=== PATIENT | male | born 1985 | race Caucasian/White ===

== ENCOUNTER 2021-01-19 09:46 | Emergency (ER) | payer OTHER, SELFPAY ==
[2021-01-19 09:57] VITALS: BP 114/78; PULSE 54; RESP 18; TEMP 36.7; O2SAT 98; BMI 19.5
--- NOTE | 2021-01-19 10:27 | ED.NECK ---
HPI - Neck Pain/Injury General Chief Complaint: Neck Pain/Injury Stated Complaint: NECK PAIN Time Seen by Provider: 01/19/21 10:15 Source: patient and family Mode of arrival: ambulatory Limitations: no limitations History of Present Illness HPI Narrative: 35 y/o male presenting with acute on chronic right sided neck pain that started yesterday. He denies trauma or injury but states he woke up and his neck was very tight and in spasm. He has a history of similar episodes that usually improve with massage and topical Biofreeze. These interventions did not improve his pain and he woke up today with even worsening pain. Pain is worse with movement and palpation. No headache, fevers, chills, vision changes. No recent chiropractic manipulation. Recently [place] so he does not have a PCP. MD complaint: neck pain Onset (ago): day(s) (1) Place: home Radiation: right lateral and upper back Severity: severe and similar to prior neck pain Severity scale (1-10): 8 Quality: aching and spasming Duration: constant Relieving factors: immobilization and remaining still Exacerbating factors: movement of neck Context: unknown Associated symptoms: none Treatments prior to arrival: none Related Data Previous Rx's Medication Instructions Recorded cyclobenzaprine 10 mg PO TID PRN #10 tab 01/19/21 ibuprofen 600 mg PO Q8H PRN #20 tab 01/19/21 lidocaine [Lidoderm] 1 patch TOPICAL DAILY #15 ea 01/19/21 Allergies Allergy/AdvReac Type Severity Reaction Status Date / Time No Known Allergies Allergy Verified 01/19/21 09:59 Review of Systems Review of Systems: Constitutional: No Fever, No Chills ENT/Mouth: No sore throat, No Rhinorrhea, No Swallowing Difficulty Cardiovascular: No Chest Pain, No SOB Respiratory: No Cough, No Sputum Gastrointestinal: No Nausea, No Vomiting Musculoskeletal: No joint pain, + Myalgias Skin: No Skin Lesions, No rash Neuro: No Weakness, No Numbness, No Dizziness, No Headache Psych: No Anxiety/Panic, No Depression Heme/Lymph: No Bruising, No Lymphadenopathy PMFSH Past Medical History Attestation statement: The following information was validated with the patient. Medical History No known health problems Social History Social History Advance Directives: No Advance Directives Information Provided: No Physical Exam Vital Signs: Vital Signs: Last Vital Signs Temp 98.0 F 01/19/21 09:57 Pulse 54 01/19/21 09:57 Resp 18 01/19/21 09:57 BP 114/78 01/19/21 09:57 Pulse Ox 98 01/19/21 09:57 Body Mass Index 19.5 Appearance: Alert. Oriented X3. No acute distress. HEENT: normal inspection Neck: right lateral tenderness with palpable muscle spasm of SCM and upper trapezius, pain with lateral rotation. no cervical spinal tenderness. CVS: Normal heart rate and rhythm. Pulses normal. Respiratory: No respiratory distress. Skin: Skin warm and dry. Normal skin color. Normal skin turgor. No rashes. Extremities: atraumatic, no edema Neuro: Oriented X 3. No motor deficit. No sensory deficit. Equal and symmetrical strength throughout. Course Course Course Narrative: 35 y/o male presenting with acute on chronic right sided neck pain. Has several episodes in the past. Exam and clinical presentation consistent with torticollis vs muscle strain. Will treat with NSAID and muscle relaxer. Management discusseed. He agrees to plan and is stable for discharge. Discharge Plan Discharge Clinical Impression: Torticollis Patient Disposition: Home, Self-Care Instructions: Spasmodic Torticollis (ED) Additional Instructions: Rest. No strenuous activity. Use ice and/or heat to your neck several times per day. Do gentle stretching to your neck as tolerated. Take the prescribed medications as needed for pain and muscle spasm. If you have worsening symptoms come back to the ER for further evaluation. Prescriptions: New cyclobenzaprine 10 mg tablet 10 mg PO TID PRN (Reason: muscle spasm) Qty: 10 RF: 0 lidocaine [Lidoderm] 5 % adhesive patch,medicated 1 patch topical DAILY Qty: 15 RF: 0 ibuprofen 600 mg tablet 600 mg PO Q8H PRN (Reason: pain) Qty: 20 RF: 0 Stand Alone Forms: Work/School Release Print Language: Armenian
[2021-01-19] MEDS: Ibuprofen 600 MG TABLET PO (10:30)
[2021-01-19] MEDS: Lidocaine 4 % Patch ADH..PATCH 1 PATCH TRANSDERMA (10:30)
[2021-01-19] MEDS: diazePAM 5 MG TABLET PO (10:31)
[2021-01-19 10:42] VITALS: RESP 18
== END 2021-01-19 10:46 | disposition home or self-care (01) ==
PROVIDERS: Emergency Provider Emergency Medicine
DX: G24.3 Spasmodic torticollis (principal)
CPT/HCPCS: 99283

== ENCOUNTER 2021-03-16 10:02 | Emergency (ER) | payer OTHER, SELFPAY ==
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
[2021-03-16 11:19] VITALS: BP 120/75; PULSE 58; RESP 18; TEMP 36.7; O2SAT 98; BMI 20.3
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
[2021-03-16] MEDS: Ibuprofen 800 MG TABLET PO (12:15)
[2021-03-16] MEDS: Cyclobenzaprine HCl 5 MG TABLET PO (12:15)
== END 2021-03-16 14:33 | disposition home or self-care (01) ==
PROVIDERS: Emergency Provider Emergency Medicine Emergency Medical Services
DX: S16.1XXA Strain of muscle, fascia and tendon at neck level, initial encounter (principal); W50.0XXA Accidental hit or strike by another person, initial encounter; Y93.83 Activity, rough housing and horseplay; Y92.039 Unspecified place in apartment as the place of occurrence of the external cause; Y99.9 Unspecified external cause status
CPT/HCPCS: 72125; 73010; 99283; 99284

== ENCOUNTER 2023-07-07 07:52 | Emergency (ER) | payer OTHER, SELFPAY ==
[2023-07-07 08:03] VITALS: BP 102/71; PULSE 71; RESP 16; TEMP 37.2; O2SAT 99; BMI 20.5
[2023-07-07 08:34] LABS: MANUAL DIFF FLAG NO
[2023-07-07 08:39] LABS: Basophils Percent Auto 0.2 % (0-2); Eosinophils Percent Auto 0.7 % (0-4); Hematocrit 40.4 % (42.0-52.0); Hemoglobin 13.5 g/dl (14.0-18.0); Imm Gran Abs Auto 0.01 X10*3/uL (0.00-0.03); Imm Gran Pct Auto 0.2 % (0.0-0.4); Lymphocytes Absolute Auto 0.4 X10*3/uL (1.2-4.9); Lymphocytes Percent Auto 9.5 % (20-40); Mean Corpuscular HGB Conc 33.4 g/dl (31.0-36.0); Mean Corpuscular Hemoglobin 29.5 pg (27.0-33.0); Mean Corpuscular Volume 88.2 fL (80.0-98.0); Mean Platelet Volume 9.8 fL (9.4-12.4); Monocytes Absolute Auto 0.6 X10*3/uL (0.1-1.2); Monocytes Percent Auto 12.7 % (2-11); Neutrophils Absolute Auto 3.5 x10*3/uL (2.0-8.3); Neutrophils Percent Auto 76.7 % (45-73); Platelet Count 209 X10*3/uL (160-400); Red Blood Count 4.58 X10*6/uL (4.60-5.80); White Blood Count 4.6 X10*3/uL (4.8-10.8)
[2023-07-07] MEDS: Ondansetron ODT 4 MG TAB.RAPDIS TRANSLINGU (08:41)
[2023-07-07 08:48] LABS: Anion Gap 14 (12-20); Blood Urea Nitrogen 9 mg/dL (9-16); Calcium 9.1 mg/dL (8.4-10.2); Carbon Dioxide 21 mmol/L (22-29); Chloride 106 mmol/L (96-108); Creatinine Clr Calc Pharmacy 92.5; Estimated Glomerular Filt Rate > 60; Glucose Random 108 mg/dL (60-115); Potassium 3.4 mmol/L (3.3-5.1); Sodium 138 mmol/L (135-145)
--- NOTE | 2023-07-07 08:49 | ED.GENADULT ---
HPI - General Adult General Chief complaint: General Medical Stated complaint: body aches Time Seen by Provider: 07/07/23 08:37 Source: patient Mode of arrival: ambulatory Limitations: no limitations History of Present Illness HPI narrative: 37-year-old male otherwise healthy came in for evaluation of generalized body ache, runny nose, sneezing, coughing, decreased taste sensation. Patient was exposed to his who is sick with similar symptoms and positive for COVID infection. Related Data Previous Rx's Medication Instructions Recorded cyclobenzaprine 10 mg tablet 10 mg PO TID PRN muscle spasm #10 01/19/21 tabs ibuprofen 600 mg tablet 600 mg PO Q8H PRN pain #20 tabs 01/19/21 lidocaine 5 % topical patch 1 patch topical DAILY #15 ea 01/19/21 (Lidoderm) cyclobenzaprine 10 mg tablet 10 mg PO TID PRN pain #18 tabs 03/16/21 naproxen 500 mg tablet 500 mg PO BID PRN pain #20 tabs 03/16/21 ondansetron 4 mg disintegrating 4 mg PO Q8-12H PRN nausea and 07/07/23 tablet vomiting #10 tabs Allergies Allergy/AdvReac Type Severity Reaction Status Date / Time No Known Allergies Allergy Verified 03/16/21 11:19 Review of Systems Review of Systems: All other systems are reviewed and are negative Constitutional: Reports as per HPI and Reports no additional constitutional complaints Eyes: Reports as per HPI and Reports no additional eye complaints Reports system reviewed and no additional complaints, except as documented Cardiovascular: Reports as per HPI and Reports no additional cardiovascular complaints Respiratory: Reports as per HPI and Reports no additional respiratory complaints Gastrointestinal: Reports as per HPI and Reports no additional gastrointestinal complaints Genitourinary: Reports no additional female genitourinary complaints Musculoskeletal: Reports no additional musculoskeletal complaints Skin/Breast: Reports system reviewed and no additional complaints, except as docu Psychiatric: Reports no additional psychiatric complaints Endocrine: Reports no additional endocrine complaints Hematologic/Lymphatic: Reports no additional hematologic/lymphatic complaints Allergic/Immunologic: Reports no additional allergic/immunologic complaints Reports system reviewed and no additional complaints, except as documented and Reports Abnormal speech present [facility] Past Medical History Medical History No known health problems Social History Social History Smoked in Last 30 Days: No Use of substances other than those prescribed or required for medical reasons: Yes Substance Use Type: Marijuana Last Used Substance: Days (ago) Advance Directives: No Advance Directives Information Provided: Yes Physical Exam ED Vital Signs: Vital Signs - 24 hr 07/07/23 08:03 Temperature 98.9 F Pulse Rate 71 Respiratory Rate 16 Blood Pressure 102/71 Pulse Oximetry 99 Oxygen Delivery Method Room Air BMI result Body Mass Index 20.5 Vital signs have been reviewed and appear to be correct. Blood pressure elevated. Heart rate normal. Respiratory rate normal. Temperature normal. Oxygen saturation normal. Appearance: Alert. Oriented X3. No acute distress. Head: Normal external exam. Normocephalic. Atraumatic. No Oleary signs noted. No raccoon eyes noted Eyes: PERRLA. EOMI. Conjunctiva and sclera normal. Eyelids normal. ENT: TM's Normal. Pharynx normal. Uvula midline. Moist mucous membranes. No trismus noted. No drooling noted. No muffled voice noted. Neck: Normal inspection. Neck supple. FROM. No adenopathy. Thyroid Normal. No meningeal signs. No neck mass noted. CVS: Normal heart rate and rhythm. Heart sound normal. No murmurs noted. Pulses normal throughout. Respiratory: No respiratory distress. Painless inspiration. Breath sounds normal. No wheezes/rales/rhonchi noted. Chest nontender. No accessory muscle usage noted or decreased air movement noted. Abdomen: Soft and nontender. Bowel sounds normal in all 4 quadrants. No distention noted. No organomegaly noted. No visible injury noted. Back: No CVA tenderness. Full range of motion noted. Skin: Skin warm and dry. Normal skin color. Normal skin turgor. No rashes/lesions/lacerations noted. Extremities: No lower extremity edema. Extremities exhibit normal range of motion. Extremities nontender. Neuro: Oriented X 3. Cranial nerve exam: II-XII are grossly intact No motor deficit. No sensory deficit. Reflexes normal. Medications Administered Discontinued Medications Generic Name Dose Route Start Last Admin Trade Name Freq PRN Reason Stop Dose Admin Ondansetron HCl 4 mg 07/07/23 08:37 07/07/23 08:41 Ondansetron Odt 4 Mg Tab.Rapdis TRANSLINGU 07/07/23 08:38 4 mg ONCE ONE Administration Medical Decision Making Differential Diagnosis Differential Diagnoses: The differential diagnosis associated with the presentation includes ( for COVID-19 infection, influenza a, influenza B, severe anemia, severe dehydration, electrolyte abnormality.) Admission/Observation Consideration of admission/observation: Escalation of care including admission/observation considered Lab Data MDM Lab Attestation statement: I reviewed the patient's lab results. 07/07/23 08:25 07/07/23 08:25 Labs: Lab Results 07/07/23 Range/Units 08:25 WBC 4.6 L (4.8-10.8) X10*3/uL RBC 4.58 L (4.60-5.80) X10*6/uL Hgb 13.5 L (14.0-18.0) g/dl Hct 40.4 L (42.0-52.0) % MCV 88.2 (80.0-98.0) fL MCH 29.5 (27.0-33.0) pg MCHC 33.4 (31.0-36.0) g/dl RDW 13.0 (11.0-16.0) % Plt Count 209 (160-400) X10*3/uL MPV 9.8 (9.4-12.4) fL Immature Gran % (Auto) 0.2 (0.0-0.4) % Neut % (Auto) 76.7 H (45-73) % Lymph % (Auto) 9.5 L (20-40) % Desha % (Auto) 12.7 H (2-11) % Eos % (Auto) 0.7 (0-4) % Baso % (Auto) 0.2 (0-2) % Lymph # (Auto) 0.4 L (1.2-4.9) X10*3/uL Desha # (Auto) 0.6 (0.1-1.2) X10*3/uL Eos # (Auto) 0.0 (0.0-0.4) X10*3/uL Baso # (Auto) 0.0 (0.0-0.2) X10*3/uL Abs Immat Gran (auto) 0.01 (0.00-0.03) X10*3/uL Absolute Neuts (auto) 3.5 (2.0-8.3) x10*3/uL Absolute Nucleated RBC 0.000 (0.0-0.012) X10*3/uL Nucleated RBC % (auto) 0.0 (0.0-0.2) /100WBC Sodium 138 (135-145) mmol/L Potassium 3.4 (3.3-5.1) mmol/L Chloride 106 (96-108) mmol/L Carbon Dioxide 21 L (22-29) mmol/L Anion Gap 14 (12-20) BUN 9 (9-16) mg/dL Creatinine 1.02 (0.5-1.4) mg/dL Estim Creat Clear Calc 92.5 Estimated GFR > 60 Random Glucose 108 (60-115) mg/dL Calcium 9.1 (8.4-10.2) mg/dL Discharge Plan Discharge Clinical Impression: COVID-19 virus infection Patient Disposition: Home, Self-Care Instructions: COVID-19 (Coronavirus Disease 2019) (ED) Additional Instructions: frequent hand washing, keep social distancing, wear face mask at all times, self quarantine for 1 week. Prescriptions: New ondansetron 4 mg tablet,disintegrating 4 mg PO Q8-12H PRN (Reason: nausea and vomiting) Qty: 10 0RF No Action cyclobenzaprine 10 mg tablet 10 mg PO TID PRN (Reason: muscle spasm) Qty: 10 0RF lidocaine [Lidoderm] 5 % adhesive patch,medicated 1 patch topical DAILY Qty: 15 0RF Rx Instructions: leave on most painful area for up to 12 hrs ibuprofen 600 mg tablet 600 mg PO Q8H PRN (Reason: pain) Qty: 20 0RF naproxen 500 mg tablet 500 mg PO BID PRN (Reason: pain) Qty: 20 0RF cyclobenzaprine 10 mg tablet 10 mg PO TID PRN (Reason: pain) Qty: 18 0RF Rx Instructions: Side effect is drowsiness. Do not take at work or while driving. Stand Alone Forms: Work/School Release
[2023-07-07 08:56] LABS: COVID-19 Test Positive (Negative); IDNOW Serial# 08D9AD1C
[2023-07-07 09:01] LABS: IDNOW Serial# 9DB6401D; Influenza A Negative (Negative); Influenza B2 Negative (Negative)
== END 2023-07-07 09:06 | disposition home or self-care (01) ==
PROVIDERS: Emergency Provider Emergency Medicine
DX: U07.1 COVID-19 (principal)
CPT/HCPCS: 80048; 85025; 87502; 87635; 99283; 99284

== ENCOUNTER 2024-01-29 10:01 | Emergency (ER) | payer OTHER, SELFPAY ==
--- NOTE | 2024-01-29 | ECG_ITS ---
Test Reason : 3 WEEKS OF VOMITING AND DIARRHEA Blood Pressure : / mmHG Vent. Rate : 088 BPM Atrial Rate : 088 BPM P-R Int : 136 ms QRS Dur : 086 ms QT Int : 346 ms P-R-T Axes : 053 022 056 degrees QTc Int : 418 ms Normal sinus rhythm Minimal voltage criteria for LVH, may be normal variant ( Raf product ) Borderline ECG No previous ECGs available Referred By: Generic ED Physician Electronically Signed By:DAXA JULIO
[2024-01-29 10:29] VITALS: BP 108/69; PULSE 102; RESP 18; TEMP 37.2; O2SAT 99; BMI 20.6
[2024-01-29 11:37] LABS: MANUAL DIFF FLAG NO
[2024-01-29 11:43] LABS: Basophils Percent Auto 0.2 % (0-2); Eosinophils Percent Auto 0.2 % (0-4); Hematocrit 42.1 % (42.0-52.0); Hemoglobin 14.2 g/dl (14.0-18.0); Imm Gran Abs Auto 0.01 X10*3/uL (0.00-0.03); Imm Gran Pct Auto 0.2 % (0.0-0.4); Lymphocytes Absolute Auto 0.4 X10*3/uL (1.2-4.9); Lymphocytes Percent Auto 7.5 % (20-40); Mean Corpuscular HGB Conc 33.7 g/dl (31.0-36.0); Mean Corpuscular Hemoglobin 29.9 pg (27.0-33.0); Mean Corpuscular Volume 88.6 fL (80.0-98.0); Mean Platelet Volume 9.3 fL (9.4-12.4); Monocytes Absolute Auto 0.5 X10*3/uL (0.1-1.2); Neutrophils Absolute Auto 4.3 x10*3/uL (2.0-8.3); Neutrophils Percent Auto 82.9 % (45-73); Platelet Count 281 X10*3/uL (160-400); Red Blood Count 4.75 X10*6/uL (4.60-5.80); Red Cell Distribution Width 12.9 % (11.0-16.0); White Blood Count 5.2 X10*3/uL (4.8-10.8)
[2024-01-29 11:57] LABS: Alanine Aminotransferase 17 U/L (0-40); Alkaline Phosphatase 60 U/L (39-117); Anion Gap 11 (12-20); Aspartate Amino Transferase 18 U/L (5-37); Bilirubin Total 0.5 mg/dL (0.0-1.0); Blood Urea Nitrogen 10 mg/dL (9-16); Calcium 10.1 mg/dL (8.4-10.2); Carbon Dioxide 26 mmol/L (22-29); Chloride 105 mmol/L (96-108); Creatinine Clr Calc Pharmacy 115.3; Estimated Glomerular Filt Rate > 60; Glucose Random 100 mg/dL (60-115); Magnesium 1.9 mg/dL (1.6-2.6); Potassium 3.4 mmol/L (3.3-5.1); Sodium 139 mmol/L (135-145); Total Protein 8.1 g/dL (6.5-8.0)
[2024-01-29 12:15] LABS: Influenza A PCR NEGATIVE (Negative); Influenza B PCR NEGATIVE (Negative); Resp Syncy Virus RNA Qual PCR NEGATIVE (Negative); SARS COV2 PCR INHOUSE NEGATIVE (Negative)
[2024-01-29 14:52] LABS: Lipase 10 U/L (8-78)
--- NOTE | 2024-01-29 17:53 | ED_ITS ---
HPI - Nausea/Vomiting/Diarrhea General Chief complaint: Nausea/Vomiting/Diarrhea Stated complaint: vomiting diarrhea Time Seen by Provider: 01/29/24 17:39 Source: patient and family Mode of arrival: ambulatory Limitations: no limitations History of Present Illness HPI Narrative: Patient comes to the emergency room accompanied by his . Patient states that for 3 weeks he has been having diarrhea and vomiting. According to the patient's , she had the same symptoms, but she took Imodium and her symptoms resolved. Patient states that he was hoping that his body would heal on his own and therefore did not take any [id number] medications. Patient denies fever chills, no significant abdominal pain. No URI or UTI symptoms. Related Data Previous Rx's ?Medication ?Instructions ?Recorded cyclobenzaprine 10 mg tablet 10 mg PO TID PRN muscle spasm #10 01/19/21 tabs ibuprofen 600 mg tablet 600 mg PO Q8H PRN pain #20 tabs 01/19/21 lidocaine 5 % topical patch 1 patch topical DAILY #15 ea 01/19/21 (Lidoderm) cyclobenzaprine 10 mg tablet 10 mg PO TID PRN pain #18 tabs 03/16/21 naproxen 500 mg tablet 500 mg PO BID PRN pain #20 tabs 03/16/21 ondansetron 4 mg disintegrating 4 mg PO Q8-12H PRN nausea and 07/07/23 tablet vomiting #10 tabs loperamide 2 mg capsule 2 mg PO Q4H PRN loose stool #14 01/29/24 (Anti-Diarrheal (loperamide)) caps ondansetron 4 mg disintegrating 4 mg PO Q6H PRN nausea and 01/29/24 tablet vomiting #14 tabs Allergies Allergy/AdvReac Type Severity Reaction Status Date / Time No Known Allergies Allergy Verified 01/29/24 10:32 Review of Systems 2 Review of Systems: Constitutional : No Weight loss, No Fever, No Chills, No Night Sweats, No Fatigue, No Malaise ENT/Mouth : No Hearing loss, No Ear Pain, No Nasal Congestion, No Sinus Pain, No Hoarseness, No sore throat, No Rhinorrhea, No Swallowing Difficulty Eyes: No Eye Pain, No Swelling, No Redness, No Foreign Body, No Discharge, No Vision Changes Cardiovascular : No Chest Pain, No SOB, No Dyspnea on Exertion, No Orthopnea, No Edema, No Palpitations Respiratory : No Cough, No Sputum, No Wheezing, No Smoke Exposure, No Dyspnea Gastrointestinal : Complaining of nausea vomiting and diarrhea, No Constipation, No abdominal Pain, No Hematochezia, No Melena Genitourinary : no irregular bleeding, No Dysuria, No Urinary Frequency, No Hematuria, No Urinary Incontinence, No Urgency, No Flank Pain, No Urinary Flow Changes, No Hesitancy Musculoskeletal : No joint pain, No Myalgias, No Joint Swelling Skin : No Skin Lesions, No rash Neuro : No Weakness, No Numbness, No Paresthesias, No Loss of Consciousness, No Dizziness, No Headache Psych : No Anxiety/Panic, No Depression, No SI/HI/AH/VH, No Social Issues, Heme/Lymph: No Bruising, No Bleeding,No Lymphadenopathy Endocrine : No Polyuria, No Polydipsia, No Temperature Intolerance PMFSH Past Medical History Medical History No known health problems Social History Social History Smoked in Last 30 Days: No Use of substances other than those prescribed or required for medical reasons: Yes Substance Use Type: Marijuana Advance Directives: No Advance Directives Information Provided: No Physical Exam 2 Vital Signs: Vital Signs: Last Vital Signs Temp 98.5 F 01/29/24 19:09 Pulse 65 01/29/24 19:09 Resp 16 01/29/24 19:09 BP 105/72 01/29/24 19:09 Pulse Ox 100 01/29/24 19:09 O2 Del Method Room Air 01/29/24 19:09 BMI result Body Mass Index 20.6 Const: Other: Appearance: Alert. Oriented X3. No acute distress. Eyes: Pupils equal, round and reactive to light. ENT: Pharynx normal. Neck: Normal inspection. Neck supple. No lymph nodes noted. No crepitus CVS: Normal heart rate and rhythm. Pulses normal. Normal S1 and S2 Respiratory: No respiratory distress. Breath sounds normal. No Wheezing. No rales Abdomen: Soft and nontender. No rigidity. No distention. Skin: Skin warm and dry. Normal skin color. Normal skin turgor. Extremities: No lower extremity edema. No Lacerations. No Rash Neuro: Oriented X 3. No motor deficit. No sensory deficit. Moving all extremities. No slurred speech. CN 2 through 12 grossly intact Psych: calm, cooperative, normal affect Medications Administered Discontinued Medications Generic Name Dose Route Start Last Admin Trade Name Mikaela PRN Reason Stop Dose Admin Sodium Chloride 1,000 mls @ 999 mls/hr 01/29/24 17:43 01/29/24 19:09 Ns IVCONT 01/29/24 18:43 Infused .Q1H1M ONE Infusion Loperamide HCl 4 mg 01/29/24 17:43 01/29/24 17:56 Loperamide Hcl 2 Mg Capsule PO 01/29/24 17:44 4 mg ONCE ONE Administration Ondansetron HCl 4 mg 01/29/24 17:43 01/29/24 17:56 Ondansetron Hcl 4 Mg/2 Ml Vial IVPUSH 01/29/24 17:44 4 mg ONCE ONE Administration Medical Decision Making Medical Decision Making [facility] Narrative: - my interpretation of labs: Hematology within normal limits, chemistry shows no acute abnormality, LFTs normal, no electrolyte abnormality. Serology negative for COVID influenza and RSV. - Patient receiving IV fluids, Zofran and loperamide. Patient likely having a viral illness. Patient's labs are reassuring. Physical exam reassuring as well. - CT scan was considered but patient does not have abdominal pain. - after IV hydration and p.o. loperamide and IV Zofran, patient will be discharged with home medications. Patient well-appearing Differential Diagnosis Differential Diagnoses: The differential diagnosis associated with the presentation includes ( viral illness, gastritis, gastroenteritis) Lab Data [facility] Lab Attestation statement: I reviewed the patient's lab results. 01/29/24 11:29 01/29/24 11:29 Labs: Lab Results 01/29/24 Range/Units 11:29 WBC 5.2 (4.8-10.8) X10*3/uL RBC 4.75 (4.60-5.80) X10*6/uL Hgb 14.2 (14.0-18.0) g/dl Hct 42.1 (42.0-52.0) % MCV 88.6 (80.0-98.0) fL MCH 29.9 (27.0-33.0) pg MCHC 33.7 (31.0-36.0) g/dl RDW 12.9 (11.0-16.0) % Plt Count 281 D (160-400) X10*3/uL MPV 9.3 L (9.4-12.4) fL Immature Gran % (Auto) 0.2 (0.0-0.4) % Neut % (Auto) 82.9 H (45-73) % Lymph % (Auto) 7.5 L (20-40) % [place] % (Auto) 9.0 (2-11) % Eos % (Auto) 0.2 (0-4) % Baso % (Auto) 0.2 (0-2) % Lymph # (Auto) 0.4 L (1.2-4.9) X10*3/uL [place] # (Auto) 0.5 (0.1-1.2) X10*3/uL Eos # (Auto) 0.0 (0.0-0.4) X10*3/uL Baso # (Auto) 0.0 (0.0-0.2) X10*3/uL Abs Immat Gran (auto) 0.01 (0.00-0.03) X10*3/uL Absolute Neuts (auto) 4.3 (2.0-8.3) x10*3/uL Absolute Nucleated RBC 0.000 (0.0-0.012) X10*3/uL Nucleated RBC % (auto) 0.0 (0.0-0.2) /100WBC Sodium 139 (135-145) mmol/L Potassium 3.4 (3.3-5.1) mmol/L Chloride 105 (96-108) mmol/L Carbon Dioxide 26 (22-29) mmol/L Anion Gap 11 L (12-20) BUN 10 (9-16) mg/dL Creatinine 0.91 (0.5-1.4) mg/dL Estim Creat Clear Calc 115.3 Estimated GFR > 60 Random Glucose 100 (60-115) mg/dL Calcium 10.1 D (8.4-10.2) mg/dL Magnesium 1.9 (1.6-2.6) mg/dL Total Bilirubin 0.5 (0.0-1.0) mg/dL AST 18 (5-37) U/L ALT 17 (0-40) U/L Alkaline Phosphatase 60 (39-117) U/L Total Protein 8.1 H (6.5-8.0) g/dL Albumin 4.0 (3.5-5.0) g/dL Lipase 10 (8-78) U/L Influenza Type A (PCR) NEGATIVE (Negative) Influenza Type B (PCR) NEGATIVE (Negative) RSV RNA Qual (PCR) NEGATIVE (Negative) SARS-CoV-2 RNA (RT-PCR) NEGATIVE (Negative) Critical Care Time Critical Care Time Critical Care Time: Yes Total Critical Care Time: 35 Attestation: I have personally provided critical care time. Time includes review of lab data, radiology results, discussion with consultants, and monitoring for potential decompensation. Intervention performed as documented. Discharge Plan Discharge Clinical Impression: Dehydration Patient Disposition: Home, Self-Care Instructions: Acute Nausea and Vomiting (ED), Acute Diarrhea (ED) Additional Instructions: Please follow-up with your primary care physician tomorrow. If you have any worsening or new symptoms, please return to the emergency room or call 911 Prescriptions: New ondansetron 4 mg tablet,disintegrating 4 mg PO Q6H PRN (Reason: nausea and vomiting) Qty: 14 0RF loperamide [Anti-Diarrheal (loperamide)] 2 mg capsule 2 mg PO Q4H PRN (Reason: loose stool) Qty: 14 0RF Rx Instructions: administer after each loose stool until symptoms controlled; do not exceed 8 mg per 24 hrs No Action cyclobenzaprine 10 mg tablet 10 mg PO TID PRN (Reason: muscle spasm) Qty: 10 0RF lidocaine [Lidoderm] 5 % adhesive patch,medicated 1 patch topical DAILY Qty: 15 0RF Rx Instructions: leave on most painful area for up to 12 hrs ibuprofen 600 mg tablet 600 mg PO Q8H PRN (Reason: pain) Qty: 20 0RF naproxen 500 mg tablet 500 mg PO BID PRN (Reason: pain) Qty: 20 0RF cyclobenzaprine 10 mg tablet 10 mg PO TID PRN (Reason: pain) Qty: 18 0RF Rx Instructions: Side effect is drowsiness. Do not take at work or while driving. ondansetron 4 mg tablet,disintegrating 4 mg PO Q8-12H PRN (Reason: nausea and vomiting) Qty: 10 0RF Stand Alone Forms: Work/School Release Interventions: ED Discharge Assessment Last Done: 01/29/24 19:09 Discharge Date/Time: 01/29/24 19:10 Print Language: Armenian
[2024-01-29] MEDS: ondansetron HCL 4 MG/2 ML VIAL IVPUSH (17:56)
[2024-01-29] MEDS: Loperamide HCl 2 MG CAPSULE 4 MG PO (17:56)
[2024-01-29] MEDS: 0.9 % Sodium Chloride 1,000 ML 999 ML IVCONT (17:57)
[2024-01-29 18:03] VITALS: BP 105/72; PULSE 68; RESP 16; TEMP 36.9; O2SAT 99
[2024-01-29 19:09] VITALS: BP 105/72; PULSE 65; RESP 16; TEMP 36.9; O2SAT 100
== END 2024-01-29 19:10 | disposition home or self-care (01) ==
PROVIDERS: Physician Assistant; Emergency Provider Emergency Medicine
DX: R11.2 Nausea with vomiting, unspecified (principal); R19.7 Diarrhea, unspecified
CPT/HCPCS: 0241U; 80053; 83690; 83735; 85025; 93005; 96361; 96374; 99284; 99285; J2405

== ENCOUNTER → 2024-01-29 11:14 | Outpatient (BNV) | payer OTHER, SELFPAY | PROVIDERS: Emergency Provider Emergency Medicine; Visit Provider Internal Medicine | DX: R94.31 Abnormal electrocardiogram [ECG] [EKG] (principal) | CPT/HCPCS: 93010 ==